=== PATIENT | male | born 1970 | race Caucasian/White ===

== ENCOUNTER 2023-01-24 08:26 | Outpatient (CLI) | payer BC, SELFPAY | END 2023-01-24 08:27 | disposition home or self-care (01) | PROVIDERS: PCP Family Medicine; Visit Provider Family Medicine | DX: Z00.00 Encounter for general adult medical examination without abnormal findings (principal); E78.5 Hyperlipidemia, unspecified; E29.1 Testicular hypofunction; Z13.1 Encounter for screening for diabetes mellitus | CPT/HCPCS: 80048; 80061 ==